=== PATIENT | female | born 1980 | race Caucasian/White ===

== ENCOUNTER 2023-10-21 01:11 | Day surgery (SDC) | payer BC, SELFPAY ==
[2023-10-07 13:35] VITALS: BMI 21.7
[2023-10-21] MEDS: LACTATED RINGERS 1,000 ML 150 ML IV CONT (13:53)
[2023-10-21 13:55] VITALS: BP 126/65; PULSE 52; RESP 20; TEMP 36.5; O2SAT 100; BMI 22.1
--- NOTE | 2023-10-21 13:55 | P.PNAN_ITS ---
Anes - Initial Pre Proc Eval Procedure: Operation Date: 10/21/23 15:00 Proposed Procedures p Esophagogastroduodenoscopy & Colonoscopy - Mendoza Weber MD Date/Time: 10/21/23 13:55 Surgeon: Mendoza Weber MD Pre Op Diagnosis: diarrhea unspecified, abnormal findings on diagnos Patient Data Age: 43 Gender: F Height: 1.68 m Weight: 61 kg Allergies Allergy/AdvReac Type Severity Reaction Status Date / Time latex Allergy Swelling Verified 10/21/23 13:39 Penicillins AdvReac Mild Abdominal Verified 10/21/23 13:39 Pain, Nausea and Vomiting Home Medications Medication Instructions Recorded Confirmed Type albuterol sulfate 90 mcg/actuation 1 puff inhalation Q6H PRN 09/15/23 10/21/23 History aerosol inhaler (Ventolin HFA) Shortness Of Breath etonogestrel 68 mg subdermal 1 implant subdermal ONCE 09/15/23 10/21/23 History implant (Nexplanon) ondansetron HCl 4 mg tablet 4 mg PO Q8H 09/15/23 10/21/23 History Patient hx anesthesia problems: none Family hx anesthesia problems: none Results Review: All pre-operative results and documents have been reviewed as part of the pre- operative evaluation. [facility] Past Medical History Medical History Allergies Anxiety Sanders's palsy Social History Social History Smoking packs per day: 1 Smoking cigarettes per day: 20.0 Years smoked: 25 Smoking pack-years: 25.00 Smoking status: Current every day smoker Tobacco type: cigarettes Alcohol intake: current Drinks per week: 10 Alcohol use details: Social Substance use: current Substance use type: marijuana Spiritual care concerns: No Anes - Eval Final PreProcedure Day of Procedure 10/21/23 13:55 Patient weight: normal Heart: regular rate and rhythm Lungs: clear to auscultation Airway: Mallampati scale class II Neurological: alert and oriented Last oral intake: >/= 8 hours ASA classification: III Emergent: no Anesthetic plan: proceed Anesthesia type and monitoring: general GIVS and standard monitoring Results Review: All pre-operative results and documents have been reviewed as part of the pre- operative evaluation. Informed Consent: The patient's anesthetic plan and its attendant risks and benefits were discussed with the patient/family/POA. Questions were solicited and answers provided to the satisfaction of the patient/family/POA.
--- NOTE | 2023-10-21 14:48 | PM.HPGS ---
History of Present Illness History of Present Illness Consent: Risks, benefits, and alternatives have been discussed and questions answered. Patient agrees to proceed with procedure. Chief complaint: diarrhea unspecified, abnormal findings on diagnos Narrative: Roxy Talavera is a 43 year old female with nausea and vomiting triggered by certain meals like lettuce, also 2 months ago had abdominal pain, CT scan at another facility showed possible colitis, now denies diarrhea but never had colonoscopy Review of Systems Review of Systems: All systems reviewed & are unremarkable except as noted in HPI and below PMFSH Past Medical History Medical History Allergies Anxiety Sanders's palsy Social History Social History Smoking packs per day: 1 Smoking cigarettes per day: 20.0 Years smoked: 25 Smoking pack-years: 25.00 Smoking status: Current every day smoker Tobacco type: cigarettes Alcohol intake: current Drinks per week: 10 Alcohol use details: Social Substance use: current Substance use type: marijuana Spiritual care concerns: No Meds Home Medications and Allergies Home Medications Medication Instructions Recorded Confirmed Type albuterol sulfate 90 mcg/actuation 1 puff inhalation Q6H PRN 09/15/23 10/21/23 History aerosol inhaler (Ventolin HFA) Shortness Of Breath etonogestrel 68 mg subdermal 1 implant subdermal ONCE 09/15/23 10/21/23 History implant (Nexplanon) ondansetron HCl 4 mg tablet 4 mg PO Q8H 09/15/23 10/21/23 History Allergies Allergy/AdvReac Type Severity Reaction Status Date / Time latex Allergy Swelling Verified 10/21/23 13:39 Penicillins AdvReac Mild Abdominal Verified 10/21/23 13:39 Pain, Nausea and Vomiting Vital Signs Vital Signs - 24 hr 10/21/23 13:55 Temperature 97.7 F Pulse Rate 52 L Respiratory Rate 20 Blood Pressure 126/65 Pulse Oximetry 100 Oxygen Delivery Room Air Exam Const: General: comfortable and no acute distress HENMT: Face/Nose/Sinus: Normal nares present Eyes: General: appearance normal, both eyes and all related structures Neck: Neck: no JVD Resp: Auscultation: clear to auscultation bilaterally Cardio: Rate: regular rate Rhythm: regular rhythm GI: Inspection: non-distended GI Palp: Yes Soft to palpation Skin: General skin exam: normal color Neuro: General: gait normal Speech: normal speech Extrem: General: normal to inspection Psych: Mental Status: mental status grossly normal Assessment and Plan Assessment and plan (1) Nausea and vomiting: Qualifiers: Vomiting type: bilious vomiting Qualified Code(s): R11.14 - Bilious vomiting Code(s): R11.2 - Nausea with vomiting, unspecified Status: Acute Assessment and Plan: egd with bx (2) Abnormal digestive system diagnostic imaging: Code(s): R93.3 - Abnormal findings on diagnostic imaging of other parts of digestive tract Status: Acute Assessment and Plan: ? colitis but now denies diarrhea colonoscopy
--- NOTE | 2023-10-21 15:03 | SUR.OPER ---
EGD: [id number] COLON: Start 1500
[2023-10-21 15:11] VITALS: BP 142/72; PULSE 85; RESP 25; O2SAT 98
[2023-10-21 15:21] VITALS: BP 123/54; PULSE 50; RESP 21; O2SAT 96
[2023-10-21 15:31] VITALS: BP 125/77; PULSE 75; RESP 22; O2SAT 100
== END 2023-10-21 15:47 | disposition home or self-care (01) ==
PROVIDERS: PCP Family Medicine; Referring Provider Nurse Practitioner Family; Visit Provider Internal Medicine Gastroenterology
PROC: 0DJ08ZZ Inspection of Upper Intestinal Tract, Via Natural or Artificial Opening Endoscopic (ICD-10-PCS; CPT 43235; principal; 2023-10-21 15:00)
DX: K21.00 Gastro-esophageal reflux disease with esophagitis, without bleeding (principal); K31.89 Other diseases of stomach and duodenum; K29.50 Unspecified chronic gastritis without bleeding; K64.8 Other hemorrhoids; K57.30 Diverticulosis of large intestine without perforation or abscess without bleeding; K44.9 Diaphragmatic hernia without obstruction or gangrene; F41.9 Anxiety disorder, unspecified; G51.0 Bell's palsy; F17.210 Nicotine dependence, cigarettes, uncomplicated; F12.90 Cannabis use, unspecified, uncomplicated; Z79.51 Long term (current) use of inhaled steroids
CPT/HCPCS: 43239; 45378; 88305; J2704; J7120

== ENCOUNTER 2024-02-21 17:06 | Emergency (ER) | payer BC, SELFPAY ==
[2024-02-21] VITALS (7 sets, daily range): BP systolic 117–159; BP diastolic 63–99; PULSE 47–62; RESP 15–20; TEMP 37.3; O2SAT 97–99
--- NOTE | ~2024-02-21 | CT_ITS ---
CLINICAL INDICATION: Nausea and vomiting with a history of colitis COMPARISON: None. TECHNIQUE: Multiple contiguous axial images of the abdomen and pelvis were performed following the ad ministration of with 100 mL Omnipaque-350 intravenous contrast The dose-length product (DLP) was 265.55 mGy-cm. Automated exposure control and iterative reconstruction technique were employed. FINDINGS/OBSERVATIONS: Visualized lower thorax: The bilateral lung bases are clear. The heart is of normal size, without pericardial effusion. Liver: A 19 x 17 mm well-circumscribed focus of fluid attenuation is identified within segment 4 of the live r, likely a cyst. Multiple additional subcentimeter areas of decreased attenuation within the liver, too small to suri cterize. The liver is not enlarged measuring 17 cm in longitudinal dimension. Gallbladder and biliary system: The gallbladder is minimally distended, and otherwise unremarkable. Pancreas: The pancreas enhances homogeneously without ductal dilatation. Spleen: The spleen enhances homogeneously and is not enlarged measuring 10 cm in longitudinal dimension. Kidneys: The bilateral kidneys enhance symmetrically without hydronephrosis or renal calculi. Adrenal glands: Unremarkable. Gastrointestinal tract: Colonic diverticulosis without surrounding inflammatory change. Appendix: The air-filled appendix is of normal caliber (axial series, images 118-134) Vasculature: Unremarkable. Lymph nodes: No pathologically enlarged or morphologically suspicious lymph nodes within the retroperitoneum or at the root of the mesentery. Pelvic structures: The bladder is minimally distended, and otherwise unremarkable. The uterus is anteverted and anteflexed, and otherwise unremarkable. Body wall and musculoskeletal: Small fat-containing umbilical hernia. No significant degenerative disease within the lower thoracic or lumbosacral spine. IMPRESSION: Multiple liver (likely) cysts. Colonic diverticulosis without surrounding inflammatory change. Small fat-containing umbilical hernia. Reviewed, dictated and finalized at location A. [facility]ER
--- NOTE | 2024-02-21 18:03 | ED_ITS ---
HPI - Nausea/Vomiting/Diarrhea General Chief complaint: Nausea/Vomiting/Diarrhea Stated complaint: n/v Time Seen by Provider: 02/21/24 17:38 History of Present Illness HPI Narrative: 43 y/o F presents to the emergency department for nausea and vomiting for 2 days. Patient states that she has been having difficulty keeping down food and fluids secondary to nausea and vomiting. She went to [facility] in [place] yesterday and underwent a lab drawn CT abdomen pelvis which showed evidence of colitis. Patient started on Compazine and states she took some this morning with minimal improvement. She denies abdominal pain, diarrhea, fever. She states this has happened several times the in the past and she has been dx with colitis. She denies hx of UC and Crohn's. She recently had an EGD and colonoscopy performed on 10/21/2023. EGD showed a small hiatal hernia and reflux esophagitis. Colonoscopy revealed diverticulosis without perforation or abscess and without bleeding, internal hemorrhoids. Patient notes that she smokes marijuana daily. Reports occasional alcohol use, last drink was 2 nights ago. Related Data Home Medications Medication Instructions Recorded Confirmed albuterol sulfate 90 mcg/actuation 1 puff inhalation Q6H PRN 09/15/23 10/21/23 aerosol inhaler (Ventolin HFA) Shortness Of Breath etonogestrel 68 mg subdermal 1 implant subdermal ONCE 09/15/23 10/21/23 implant (Nexplanon) ondansetron HCl 4 mg tablet 4 mg PO Q8H 09/15/23 10/21/23 Allergies Allergy/AdvReac Type Severity Reaction Status Date / Time latex Allergy Swelling Verified 02/21/24 18:16 Penicillins AdvReac Mild Abdominal Verified 02/21/24 18:16 Pain, Nausea and Vomiting Review of Systems Review of Systems: All systems reviewed & are unremarkable except as noted in HPI and below PMFSH Past Medical History Medical History Allergies Anxiety Sanders's palsy Social History Social History Smoking packs per day: 1 Smoking cigarettes per day: 20.0 Years smoked: 25 Smoking pack-years: 25.00 Smoking status: Current every day smoker Tobacco type: cigarettes Alcohol intake: current Drinks per week: 10 Alcohol use details: Social Substance use: current Substance use type: marijuana Spiritual care concerns: No Exam Narrative: GENERAL: Well-appearing, well-nourished, and in no acute distress. HEAD: Normocephalic, atraumatic. EYES: EOMI. ENT: Nares clear, no rhinorrhea or epistaxis. Mucous membranes moist. NECK: Supple. CHEST: Clear to auscultation. No respiratory distress. HEART: Regular rate and rhythm. No murmur heard. Normal peripheral pulses. ABDOMEN: Soft, nontender, nondistended, normal active bowel sounds. No rebound, guarding or rigidity. No CVA tenderness. Negative Cedillo sign. EXTREMITIES: Normal range of motion. No edema. SKIN: Warm, dry, no rash. NEURO: No focal deficits. Alert and oriented x3 Course Vital Signs Vital signs: Vital Signs Temperature 99.1 F 02/21/24 17:13 Pulse Rate 56 L 02/21/24 17:13 Respiratory Rate 20 02/21/24 17:13 Blood Pressure 159/99 H 02/21/24 17:13 Pulse Oximetry 97 02/21/24 17:13 Oxygen Delivery Room Air 02/21/24 17:13 Temperature 99.1 F 02/21/24 17:13 Pulse Rate 54 L 02/21/24 22:55 Respiratory Rate 15 02/21/24 22:55 Blood Pressure 127/76 02/21/24 22:55 Pulse Oximetry 99 02/21/24 22:55 Oxygen Delivery Room Air 02/21/24 17:13 MDM - Nausea/Vomiting/Diarrhea MDM Narrative Medical decision making narrative: 43-year-old female presents emergency department for nausea and vomiting for 2 days. Patient was evaluated at an outside hospital yesterday for she had a CT abdomen pelvis performed that showed colitis. Patient started on Compazine. She presents today for persistent nausea and vomiting. She denies diarrhea or abdominal pain. Her vitals are with mild elevated blood pressure. She is afebrile nontoxic appearing. Abdomen is soft and nontender. CBC shows leukocytosis of 13.6 and elevated hemoglobin which is likely secondary to dehydration. No bandemia. Chemistries with mild hypokalemia 3.3 and hyponatremia 133, magnesium is normal. BUN mildly elevated at 2 with normal creatinine of 0.9. AST mildly elevated at 30 with normal ALT, alk-phos and bilirubin of 1.1. Lipase is mildly elevated 423. UA with 2+ ketonuria, 6-10 RBCs, 6-10 wbc's and trace leuk esterase. This is a contaminated sample the patient denies signs or symptoms of UTI. is negative. Patient received IV fluids and Zofran and had persistent symptoms. Upon re- evaluation she states that she is concerned her symptoms are secondary to her gallbladder and she is reporting minimal pain to her epigastrium. Will obtain CT abdomen pelvis given elevated lipase, however she has no significant tenderness to the right upper quadrant and negative Cedillo sign on exam. CT abdomen pelvis reveals multiple liver cysts, colonic diverticulosis without surrounding inflammatory changes small fat containing umbilical hernia. Patient then received another L of fluids, Reglan and IM Haldol. Potassium orally repleted. She is able tolerate fluids and has had some improvement. Suspect her symptoms are secondary to gastroenteritis versus cannabinoid hyperemesis syndrome. Advised her to drink Gatorade, water and Pedialyte and to eat small frequent meals per advised her to discontinue marijuana follow-up with her PCP. Additionally patient was found to be bradycardic from the 40 to 50 bpm throughout her ED stay. EKG shows sinus bradycardia with a rate of 46 ppm, normal MD interval, normal QRS duration normal QTC. No ischemic changes. I discussed this with the patient who reports she has chronic bradycardia since she was a teenager including rates in the 40s. Her orthostatics are normal after 2 L of fluids and she states her dizziness has resolved. Strict ED return precautions discussed. She is agreeable with the plan verbalized understanding. Discharged in stable condition. Lab Data 02/21/24 18:12 02/21/24 18:12 Labs: Lab Results 02/21/24 02/21/24 02/21/24 Range/Units 18:08 18:09 18:10 WBC (4.5-10.0) K/mm3 RBC (4.2-5.4) M/mm3 Hgb (12.0-15.0) g/dL Hct (37.0-47.0) % MCV (80-100) fl MCH (26-34) pg MCHC (32-36) g/dl RDW (11.5-14.5) % Plt Count (150-375) k/mm3 MPV (7.4-10.4) fl Immature Gran % (Auto) (0-0.5) % Neut % (Auto) (45.5-73.1) % Lymph % (Auto) (18.3-44.2) % [place] % (Auto) (2.6-8.5) % Eos % (Auto) (0-4.4) % Baso % (Auto) (0.2-1.2) % Lymph # (Auto) (0.9-3.2) K/mm3 [place] # (Auto) (0.1-0.6) K/mm3 Eos # (Auto) (0-0.3) K/mm3 Baso # (Auto) (0.0-0.1) K/mm3 Abs Immat Gran (auto) (0.00-0.031) K/mm3 Absolute Neuts (auto) (1.3-6.7) K/mm3 Absolute Nucleated RBC (0.0-0.012) K/mm3 Nucleated RBC % (0.0-0.2) % Sodium (137-145) mmol/L Potassium (3.4-5.0) mmol/L Chloride (98-107) mmol/L Carbon Dioxide (22-30) mmol/L Anion Gap (4-12) mmol/L BUN (7-17) mg/dL Creatinine (0.7-1.0) mg/dL Estim Creat Clear Calc ml/min Estimated GFR (59 - ) Glucose (65-110) mg/dL Calcium (8.4-10.2) mg/dL Magnesium (1.6-2.3) mg/dL Total Bilirubin (0.2-1.3) mg/dL AST (14-36) U/L ALT (6-35) U/L Alkaline Phosphatase (38-126) U/L Troponin I < 0.012 (0.000-0.034) ng/mL Total Protein (6.3-8.2) g/dL Albumin (3.5-5.1) g/dL Lipase (23-300) U/L Urine Color Yellow (Yellow) Urine Appearance Cloudy H (Clear) Urine pH 6.5 (5.0-9.0) Ur Specific [place] 1.033 (1.001-1.035) Urine Protein 1+ H (Negative) mg/dL Urine Glucose (UA) Negative (Negative) mg/dL Urine Ketones 2+ H (Negative) mg/dL Ur Blood (Man) 2+ H (Negative) Urine Nitrate Negative (Negative) Urine Bilirubin Negative (Negative) Urine Urobilinogen 1.0 (<2.0) mg/dL Add Ur Microanalysis Reviewed Leukocyte Esterase Rfl Trace H (Negative) KISHAN/UL Urine RBC 6-10 H (0-2) /hpf Urine WBC 6-10 H (0-3) /hpf Ur Squamous Epith Cells Many H (Few) /hpf Urine Bacteria 1+ H /hpf Urine Casts 3-5 POC Urine HCG, Qual Negative (Negative) 02/21/24 Range/Units 18:12 WBC 13.6 H (4.5-10.0) K/mm3 RBC 4.88 (4.2-5.4) M/mm3 Hgb 15.2 H (12.0-15.0) g/dL Hct 44.0 (37.0-47.0) % MCV 90.2 (80-100) fl MCH 31.1 (26-34) pg MCHC 34.5 (32-36) g/dl RDW 12.9 (11.5-14.5) % Plt Count 286 (150-375) k/mm3 MPV 9.1 (7.4-10.4) fl Immature Gran % (Auto) 0.4 (0-0.5) % Neut % (Auto) 73.2 H (45.5-73.1) % Lymph % (Auto) 13.3 L (18.3-44.2) % [place] % (Auto) 12.9 H (2.6-8.5) % Eos % (Auto) 0.0 (0-4.4) % Baso % (Auto) 0.2 (0.2-1.2) % Lymph # (Auto) 1.81 (0.9-3.2) K/mm3 [place] # (Auto) 1.8 H (0.1-0.6) K/mm3 Eos # (Auto) 0.0 (0-0.3) K/mm3 Baso # (Auto) 0.0 (0.0-0.1) K/mm3 Abs Immat Gran (auto) 0.06 H (0.00-0.031) K/mm3 Absolute Neuts (auto) 10.0 H (1.3-6.7) K/mm3 Absolute Nucleated RBC 0.000 (0.0-0.012) K/mm3 Nucleated RBC % 0.0 (0.0-0.2) % Sodium 133 L (137-145) mmol/L Potassium 3.3 L (3.4-5.0) mmol/L Chloride 94 L (98-107) mmol/L Carbon Dioxide 30 (22-30) mmol/L Anion Gap 9 (4-12) mmol/L BUN 20 H (7-17) mg/dL Creatinine 0.90 (0.7-1.0) mg/dL Estim Creat Clear Calc 66 ml/min Estimated GFR > 60 (59 - ) Glucose 102 (65-110) mg/dL Calcium 9.6 (8.4-10.2) mg/dL Magnesium 1.9 (1.6-2.3) mg/dL Total Bilirubin 1.1 (0.2-1.3) mg/dL AST 38 H (14-36) U/L ALT 26 (6-35) U/L Alkaline Phosphatase 63 (38-126) U/L Troponin I (0.000-0.034) ng/mL Total Protein 8.0 (6.3-8.2) g/dL Albumin 4.8 (3.5-5.1) g/dL Lipase 423 H (23-300) U/L Urine Color (Yellow) Urine Appearance (Clear) Urine pH (5.0-9.0) Ur Specific [place] (1.001-1.035) Urine Protein (Negative) mg/dL Urine Glucose (UA) (Negative) mg/dL Urine Ketones (Negative) mg/dL Ur Blood (Man) (Negative) Urine Nitrate (Negative) Urine Bilirubin (Negative) Urine Urobilinogen (<2.0) mg/dL Add Ur Microanalysis Leukocyte Esterase Rfl (Negative) KISHAN/UL Urine RBC (0-2) /hpf Urine WBC (0-3) /hpf Ur Squamous Epith Cells (Few) /hpf Urine Bacteria /hpf Urine Casts POC Urine HCG, Qual (Negative) Discharge Plan Discharge Clinical Impression: Gastroenteritis, Bradycardia Patient Disposition: Home, Self-Care Condition: Stable Instructions: Antibiotic Form, Gastroenteritis (ED) Additional Instructions: You were evaluated in the emergency department for persistent nausea and vomiting. Your workup was found have mildly low potassium which has been repleted. The CT of your abdomen and pelvis shows diverticulosis, fat containing umbilical hernia and liver cyst. Please follow-up with her PCP. I suspect her symptoms are secondary to a viral gastroenteritis or use of marijuana. Please stop using marijuana as this may be exacerbating symptoms. Please drink plenty fluids including water, Gatorade and Pedialyte. Eat small frequent meals as tolerated. Return to the emergency department physical focal abdominal pain, fever, your unable to tolerate food or fluids, or other concerning symptoms. Prescriptions: New metoclopramide HCl 10 mg tablet 10 mg PO Q6H PRN (Reason: nausea and vomiting) Qty: 20 0RF No Action albuterol sulfate [Ventolin HFA] 90 mcg/actuation HFA aerosol inhaler 1 puff inhalation Q6H PRN (Reason: Shortness Of Breath) ondansetron HCl 4 mg tablet 4 mg PO Q8H Nexplanon 68 mg implant 1 implant subdermal ONCE Rx Instructions: as a single dose omeprazole 40 mg capsule,delayed release(DR/EC) 40 mg PO .daily Qty: 30 3RF Follow-up/Referrals: Ritchie Staley M.D. [Primary Care Provider] - Stand Alone Forms: Work/School Release IP
[2024-02-21 18:12] LABS: BEDSIDEPREGUCG Negative (Negative)
[2024-02-21 18:17] LABS: Basophils Percent Auto 0.2 % (0.2-1.2); Hemoglobin 15.2 g/dL (12.0-15.0); Immature Granulocyte Absolute 0.06 K/mm3 (0.00-0.031); Immature Granulocyte Percent A 0.4 % (0-0.5); Lymphocytes Absolute Auto 1.81 K/mm3 (0.9-3.2); Lymphocytes Percent Auto 13.3 % (18.3-44.2); Mean Corpuscular HGB Conc 34.5 g/dl (32-36); Mean Corpuscular Hemoglobin 31.1 pg (26-34); Mean Corpuscular Volume 90.2 fl (80-100); Mean Platelet Volume 9.1 fl (7.4-10.4); Monocytes Absolute Auto 1.8 K/mm3 (0.1-0.6); Monocytes Percent Auto 12.9 % (2.6-8.5); Neutrophils Percent Auto 73.2 % (45.5-73.1); Platelet Count Result 286 k/mm3 (150-375); Red Blood Count 4.88 M/mm3 (4.2-5.4); Red Cell Distribution Width 12.9 % (11.5-14.5); White Blood Count 13.6 K/mm3 (4.5-10.0)
[2024-02-21] MEDS: FAMOTIDINE 20 MG/2 ML VIAL IV PUSH (18:17)
[2024-02-21] MEDS: SODIUM CHLORIDE 0.9% IV 1,000 ML 999 ML IV CONT ×2 (18:17→19:58)
[2024-02-21] MEDS: ONDANSETRON INJ 4 MG/2 ML VIAL IV PUSH (18:17)
[2024-02-21 18:30] LABS: Alanine Aminotransferase 26 U/L (6-35); Albumin Level 4.8 g/dL (3.5-5.1); Alkaline Phosphatase 63 U/L (38-126); Anion Gap 9 mmol/L (4-12); Aspartate Amino Transferase 38 U/L (14-36); Bilirubin,Total 1.1 mg/dL (0.2-1.3); Blood Urea Nitrogen 20 mg/dL (7-17); Calcium 9.6 mg/dL (8.4-10.2); Carbon Dioxide 30 mmol/L (22-30); Chloride 94 mmol/L (98-107); Estimated CRCL calculation 66 ml/min; Estimated Glomerular Filt Rate > 60; Glucose 102 mg/dL (65-110); Potassium 3.3 mmol/L (3.4-5.0); Sodium 133 mmol/L (137-145)
[2024-02-21 18:31] LABS: Lipase 423 U/L (23-300)
[2024-02-21 18:32] LABS: Add Urine Microscopic? YES; Appearance Urine Cloudy (Clear); Bacteria Urine 1+ /hpf; Bilirubin Urine Negative (Negative); Blood Urine 2+ (Negative); Color Urine Yellow (Yellow); Glucose Urine UA Negative (Negative); Ketones Urine 2+ mg/dL (Negative); Leukocyte Esterase Ur Trace LEU/UL (Negative); Need Manual Microscopic Reviewed; Nitrate Urine Negative (Negative); Protein Urine 1+ mg/dL (Negative); Specific Grav Ur 1.033 (1.001-1.035); Squamous Epithelial Cell Urine Many /hpf (Few); pH Urine 6.5 (5.0-9.0)
[2024-02-21 18:52] LABS: Magnesium 1.9 mg/dL (1.6-2.3)
--- NOTE | 2024-02-21 18:58 | ECG_ITS ---
Test Date: 2024-02-21 19:06:20 Measurements Intervals [place] Rate: 46 P: 44 SD: 143 QRS: 53 QRSD: 90 T: 65 QT: 497 QTc: 437 Interpretive Statements SINUS BRADYCARDIA DELAYED PRECORDIAL R/S TRANSITION BORDERLINE T WAVE ABNORMALITY- ANTERIOR LEADS BASELINE ARTIFACT- I, II, III, AVR, AVL, AVF, V1-V3 ABNORMAL ECG No previous ECG available for comparison Electronically Signed On 02-21-2024 20:12:58 [employer] by Yahir Zamora D.O.
[2024-02-21] MEDS: HALOPERIDOL LACTATE 5 MG/ML VIAL IM (19:27)
[2024-02-21 19:40] LABS: Troponin I < 0.012 ng/mL (0.000-0.034)
[2024-02-21] MEDS: POTASSIUM CHLORIDE 20 MEQ PACKET (FOR LIQUID) PO (21:33)
[2024-02-21] MEDS: METOCLOPRAMIDE HCL INJ 10 MG/2 ML VIAL IV PUSH (22:23)
== END 2024-02-21 23:31 | disposition home or self-care (01) ==
PROVIDERS: Emergency Provider Physician Assistant; PCP Family Medicine
DX: K52.9 Noninfective gastroenteritis and colitis, unspecified (principal); R00.1 Bradycardia, unspecified; F17.210 Nicotine dependence, cigarettes, uncomplicated
CPT/HCPCS: 36415; 74177; 80053; 81001; 81025; 83690; 83735; 84484; 85025; 93005; 96361; 96372; 96374; 96375; 99284; A9270; J1630; J2405; J2765; J7030; Q9967